=== PATIENT | female | born 1960 | race African-American/Black ===

== ENCOUNTER 2022-05-03 15:24 | Emergency (ER) | payer MEDICAID ==
[~2022-05-03] VITALS: Ht 177.8 cm; Wt 118.0 kg
[2022-05-03 15:30] VITALS: BP 163/97
[2022-05-03] MEDS ORDERED: IBUP-2028 MT (18:37)
[2022-05-03] MEDS ORDERED: CYCL10TA21 MT (18:37)
== END 2022-05-03 19:30 | disposition home or self-care (01) ==
LOC: ER 15:24
DX: M25.512 Pain in left shoulder (principal); I10 Essential (primary) hypertension; V43.52XA Car driver injured in collision with other type car in traffic accident, initial encounter; Y93.89 Activity, other specified; Y92.410 Unspecified street and highway as the place of occurrence of the external cause; Z68.37 Body mass index [BMI] 37.0-37.9, adult; Z98.890 Other specified postprocedural states
CPT/HCPCS: 73030; 99283